=== PATIENT | male | born 2005 | race Caucasian/White ===

== ENCOUNTER 2024-05-06 22:30 | Emergency (ER) | payer SELFPAY | END 2024-05-06 22:33 | disposition left against medical advice (07) | LOC: MW.ED 22:30 | DX: Z53.21 Procedure and treatment not carried out due to patient leaving prior to being seen by health care provider (principal) ==

== ENCOUNTER 2024-05-14 22:54 | Emergency (ER) | payer OTHER ==
[2024-05-14] MEDS: Acetaminophen 500 MG Tab PO ONE (23:22)
[2024-05-14] MEDS: Ibuprofen 400 MG Tab PO ONE (23:22)
[2024-05-15 00:07] LABS: CORONAVIRUS COVID-19 NAA POSITIVE (NEGATIVE); INFLUENZA A NAA NEGATIVE (NEGATIVE); INFLUENZA B NAA NEGATIVE (NEGATIVE); RESPIRATORY SYNCYTIAL VIR NAA NEGATIVE (NEGATIVE)
== END 2024-05-15 01:05 | disposition home or self-care (01) ==
LOC: MW.ED 22:54
DX: U07.1 COVID-19 (principal); Z79.899 Other long term (current) drug therapy
CPT/HCPCS: 0241U; 87651; 99283; A9270